=== PATIENT | male | born 1975 | race Caucasian/White ===

== ENCOUNTER 2017-05-20 08:13 | Emergency (ER) | payer BC ==
[2017-05-20 08:25] VITALS: BP 153/73
--- NOTE | 2017-05-20 08:26 | ED Physician Documentation ---
PD HPI LOWER EXT INJURY - Stated complaint Stated Complaint: RT FOOT PX - Chief complaint Chief Complaint: Ext Problem - History obtained from History obtained from: Patient - History of Present Illness PD HPI LOW EXT INJURY LOCATION: Right, Foot Type of injury: Blunt / blow Timing - onset: Yesterday Worsened by: Moving, Palpating, Other (Weightbearing) Associated symptoms: Swelling Similar symptoms before: Has not had sx before - Additional information Additional information: The patient is a 41-year-old male who presents with pain in his right foot. He was playing soccer yesterday when he kicked the ball, using the dorsum of his foot. The pain has become progressively worse since onset. It is worse with weightbearing. He denies any other injuries. He denies any prior history of foot injury. Review of Systems Constitutional: denies: Fever Skin: denies: Abrasion (s) Musculoskeletal: reports: Extremity pain (Right foot). denies: Back pain Neurologic: denies: Focal weakness, Numbness PD PAST MEDICAL HISTORY - Past Medical History Cardiovascular: None Respiratory: None Endocrine/Autoimmune: None - Allergies Allergies/Adverse Reactions: Allergies Allergy/AdvReac Type Severity Reaction Status Date / Time No Known Drug Allergies Allergy Verified 05/20/17 08:25 - Social History Does the pt smoke?: No PD ED PE NORMAL - Vitals Vital signs reviewed: Yes (Normal) - General General: Alert and oriented X 3, Well developed/nourished - HEENT HEENT: Atraumatic - Respiratory Respiratory: No respiratory distress - Derm Derm: No rash - Extremities Extremities: No edema, No calf tenderness / cord, Other (There is tenderness to palpation over the dorsum of the right foot, with mild soft tissue swelling. There is no tenderness with axial loading on the individual metatarsals. There is no break in the integument. Distal neurovascular is intact.) - Neuro Neuro: Alert and oriented X 3, No motor deficit, No sensory deficit, Normal speech Results - Vitals Vitals: Oxygen O2 Source Room air - Rads (name of study) Right foot Radiology: Prelim report reviewed, EMP read contemporaneously, See rad report ( Normal foot radiography) PD MEDICAL DECISION MAKING - ED course Complexity details: reviewed results, re-evaluated patient, considered differential, d/w patient ED course: The patient's presentation is most consistent with contusion to his right foot. There is no evidence of bony abnormality on x-ray examination. I discussed with him the expected course of injury, symptomatic treatment, as well as potentially worrisome signs or symptoms that should prompt reevaluation. Departure - Departure Disposition: 01 Home, Self Care Clinical Impression: Contusion of right foot Qualifiers: Encounter type: initial encounter Qualified Code(s): S90.31XA - Contusion of right foot, initial encounter Condition: Stable Instructions: ED Contusion Foot Follow-Up: Aubrey Abrams MD [Primary Care Provider] - Comments: Keep your right foot elevated as much of the time as possible for the next few days. Apply ice pack intermittently for the next 3 days. You can use Tylenol or ibuprofen if needed for discomfort. Let pain be your guide to activity level. Follow-up with your primary physician or return to the emergency department if you develop increasing pain or swelling, or otherwise worsening symptoms. Discharge Date/Time: 05/20/17 09:07
--- NOTE | 2017-05-20 08:51 | XRAY Preliminary Report ---
Exam: XR Foot 3 View RT IMPRESSION: Normal foot radiography. [facility] SITE ID: [id number]
--- NOTE | 2017-05-20 08:54 | XRAY Report ---
EXAM: RIGHT FOOT RADIOGRAPHY EXAM DATE: 05/20/2017 08:34 AM. CLINICAL HISTORY: Injury to right foot, with tenderness over dorsum. COMPARISON: None. TECHNIQUE: 3 views. FINDINGS: Bones: Normal. No fractures or bone lesions. Joints: Normal. No subluxations. Soft Tissues: Normal. No soft tissue swelling. IMPRESSION: Normal foot radiography. [facility] Referring Provider Line: [phone] SITE ID: [id number]
== END 2017-05-20 09:07 | disposition home or self-care (01) ==
LOC: ED 08:13
DX: S90.31XA Contusion of right foot, initial encounter (principal); W21.02XA Struck by soccer ball, initial encounter; Y93.66 Activity, soccer; Y92.322 Soccer field as the place of occurrence of the external cause
CPT/HCPCS: 99282; 99283